=== PATIENT | male | born 2000 | race Two or more races ===

== ENCOUNTER 2025-03-01 22:19 | Emergency (ER) | payer OTHER ==
[~2025-03-01] VITALS: Ht 175.3 cm; Wt 86.4 kg
[2025-03-01 23:13] VITALS: BP 130/77; PULSE 97; RESP 18; TEMP 98.7; O2SAT 98
[2025-03-01 23:41] LABS: CALCIUM, TOTAL 9.0 mg/dL (8.8-10.5); CREATININE 0.98 mg/dL (0.60-1.30); GLOMERULAR FILTR. RATE CALC > 60 mL/min (>60); GLUCOSE,RANDOM 92 mg/dL (70-110); SODIUM SERUM 141 mmol/L (136-145); UREA NITROGEN, BLOOD 15 mg/dL (7-18)
[2025-03-01 23:42] LABS: PLATELET COUNT (AUTO) 225 K/uL (150-450); RED BLOOD CELL COUNT(AUTO) 4.85 MIL/uL (4.50-5.90); RED CELL DISTRIBUTION WIDTH 14.3 % (11.5-14.5); WHITE BLOOD COUNT (AUTO) 9.5 K/uL (4.5-11.0)
[2025-03-01 23:46] LABS: ASPARTATE AMINOTRANSFERASE 235.0 U/L (15-37); TOTAL PROTEIN, SERUM 6.8 g/dL (6.4-8.2)
[2025-03-02] MEDS: KETOROLAC TROMETHAMINE 30 MG/ML VIAL IM ONE (03:06)
[2025-03-02] MEDS: ONDANSETRON 4 MG TABLET PO ONE (03:06)
== END 2025-03-02 04:17 | disposition home or self-care (01) ==
LOC: EMS 22:28
DX: K80.20 Calculus of gallbladder without cholecystitis without obstruction (principal); Z98.84 Bariatric surgery status
CPT/HCPCS: 99285; 80048; 80076; 83690; 85025; 36415; 76705; 96372; J1885; Q0162